=== PATIENT | male | born 1960 | race Caucasian/White ===

== ENCOUNTER 2019-08-05 08:34 | Emergency (ER) | payer OTHER, SELFPAY ==
--- NOTE | 2019-08-05 08:38 | ED.GENADULT ---
HPI - General Adult General Chief complaint: Dental/Oral Stated complaint: Dental/Oral Time Seen by Provider: 08/05/19 09:04 Source: patient Mode of arrival: ambulatory Limitations: no limitations History of Present Illness HPI narrative: 58-year-old male patient presents to the [facility] with complaints of dental pain that started yesterday morning. Patient states that he did take a couple of doses of ibuprofen for the pain yesterday. Patient states he woke up today and noticed that his right cheek is a little bit more swollen continues to have pain. Patient states he has had issues with dental issues in the past and had to get some teeth pulled on the right lower area. Patient denies any fevers. Denies any shortness of breath, chest pain. Related Data Home Medications Medication Instructions Recorded Confirmed paroxetine HCl [Paxil] mg PO 08/05/19 Allergies Allergy/AdvReac Type Severity Reaction Status Date / Time No Known Allergies Allergy Verified 08/05/19 08:59 Review of Systems Review of Systems: Narrative: CONSTITUTIONAL: Denies fever, chills, or sweats. EYES: Denies visual changes, redness, or discharge. ENT: Denies rhinorrhea, congestion, sore throat, or otalgia. Positive dental pain to right lower x2 days CARDIOVASCULAR: Denies chest pain, palpitations, or edema. RESPIRATORY: Denies cough or dyspnea. GASTROINTESTINAL: Denies abdominal pain, nausea, vomiting, or diarrhea. GENITOURINARY: Denies dysuria or hematuria. SKIN: Denies rash or itching. MUSCULOSKELETAL: Denies back pain, joint pain, or myalgia. NEUROLOGIC: Denies headache, numbness, or weakness. PSYCHIATRIC: Denies anxiety or depression. PMFSH Comments At the time of my signature I agree with nursing past medical history, surgical, social, and family history. There is no relevant family history pertinent to the presenting complaint. Exam Narrative: Exam Narrative: GENERAL: Well-appearing, well-nourished, and in no acute distress. HEAD: Normocephalic, atraumatic. EYES: PERRLA and EOMI. ENT: Nares clear, no rhinorrhea or epistaxis. Mucous membranes moist. Bilateral TMs are clear with no erythema or foreign bodies in the canal. There is a very small abscess forming on the gum of the right lower oral cavity. There is no teeth present to this area. There is some redness swelling and erythema but no discharge noted. No obvious swelling noted to the cheek at this time. Patient tolerating secretions well. NECK: Supple. No lymphadenopathy CHEST: Clear to auscultation. No respiratory distress. Patient able to talk in clear complete sentences. HEART: Regular rate and rhythm. No murmur heard. Normal peripheral pulses. ABDOMEN: Soft, nontender, nondistended, normal active bowel sounds. EXTREMITIES: Normal range of motion. No edema. SKIN: Warm, dry, no rash. NEURO: No focal deficits. Alert and oriented x3. Course Vital Signs Vital signs: Vital Signs Temperature 36.4 C 08/05/19 08:55 Pulse Rate 60 08/05/19 08:55 Respiratory Rate 16 08/05/19 08:55 Blood Pressure 136/88 08/05/19 08:55 Pulse Oximetry 99 08/05/19 08:55 Temperature 36.4 C 08/05/19 08:55 Pulse Rate 60 08/05/19 08:55 Respiratory Rate 16 08/05/19 08:55 Blood Pressure 136/88 08/05/19 08:55 Pulse Oximetry 99 08/05/19 08:55 Vital signs reviewed. The patient has been informed that they may have pre-hypertension or Hypertension based on a BP reading in the department. I recommend that the patient call the primary care provider listed on their discharge instructions or a physician of their choice this week to arrange follow up for further evaluation of possible pre-hypertension or Hypertension Medical Decision Making Differential Diagnosis Differential Diagnosis: Differential diagnosis: Dental caries, periodontal disease, avulsed tooth, tooth infections, mandibular infection, Scott's angiana, upper tooth infection, dry socket, gingivitis, acute necrotizin
[2019-08-05 08:55] VITALS: BP 136/88; PULSE 60; RESP 16; TEMP 36.4; O2SAT 99
== END 2019-08-05 09:24 | disposition home or self-care (01) ==
PROVIDERS: Emergency Provider Nurse Practitioner Family
DX: K04.7 Periapical abscess without sinus (principal); F32.9 Major depressive disorder, single episode, unspecified
CPT/HCPCS: 99203; G0463